=== PATIENT | male | born 1990 | race Caucasian/White ===

== ENCOUNTER → 2017-09-02 | Emergency (ER) | payer BC ==
[~2017-09-02] VITALS: Ht 185.4 cm; Wt 80.7 kg
[~2017-09-02] MED LIST: FAMOTIDINE. 20 MG/2 ML VIAL IV ONE; diphenhydrAMINE 50 MG/1 ML VIAL IV ONE; diphenhydrAMINE 50 MG/1 ML VIAL ONE; methylPREDNISolone SOD SUCC 125 MG/2 ML VIAL IV ONE; methylPREDNISolone SOD SUCC 125 MG/2 ML VIAL ONE
--- NOTE | 2017-09-02 18:10 | NUR ---
27 YEARS OLD MALE PRESENTS TO ER WITH ALLERGIC REACTION SKIN RED WITH RASH, NO SOB NO NAUSEA VOMITING WILL CONTINUE TO MONITOR.
[2017-09-02 18:54] VITALS: BP 134/78
--- NOTE | 2017-09-02 18:56 | NUR ---
PT CONDITION IMPROVED VITAL STABLE D/C HOME WITH INSTRUCTIONS AFTER CARE REVIEWED UNDERSTOOD LEFT ER VIA SELF ALERT, ORIENTED X 4.
== END | disposition home or self-care (01) ==
LOC: ER 17:49
DX: T78.40XA Allergy, unspecified, initial encounter (principal); X58.XXXA Exposure to other specified factors, initial encounter
CPT/HCPCS: A4663; J1200; J2930; J3490